=== PATIENT | female | born 1995 | race Caucasian/White ===

== ENCOUNTER → 2023-12-31 14:48 | Outpatient (REF) | payer BC, SELFPAY | LOC: REG 14:48 | PROVIDERS: ATTENDING PHYSICIAN Obstetrics & Gynecology; FAMILY PHYSICIAN Nurse Practitioner Primary Care | DX: O76 Abnormality in fetal heart rate and rhythm complicating labor and delivery (principal) | CPT/HCPCS: 36415; 86850; 86900; 86901 ==

== ENCOUNTER 2024-01-02 19:21 | Inpatient (IN) | payer BC, SELFPAY ==
[2024-01-02 19:27] VITALS: BMI 24.0
[2024-01-02 20:00] VITALS: BP 125/94
[2024-01-02 20:24] LABS: % Basophils 0.3 % (0-2); % Eosinophils 0.8 % (0-6); % Immature Granulocytes 0.6 % (0-0.5); % Lymphocytes 16.4 % (20.5-51.1); % Monocytes 4.1 % (1.7-9.3); % Neutrophils 77.8 % (42.2-75.2); Absolute Eosinophils 0.1 10^3/uL (0-0.7); Absolute Immature Granulocytes 0.1 10^3/uL (0-0.05); Absolute Lymphocytes 1.7 10^3/uL (1.2-3.4); Absolute Monocytes 0.4 10^3/uL (0.1-0.6); Absolute Neutrophils 8.1 10^3/uL (1.4-6.5); Hematocrit 33.8 % (37.0-47.0); Hemoglobin 12.4 g/dL (12.0-16.0); Mean Corp Hgb Conc. 36.7 g/dL (33.0-37.0); Mean Corpuscular Hgb 32.7 pg (27.0-31.0); Mean Corpuscular Volume 89.2 fL (81.0-99.0); Mean Platelet Volume 12.1 fL (7.4-10.4); Nucleated Red Blood Cells % 0 %; Platelet Count 165 10^3/uL (130-400); Red Blood Cell Count 3.79 10^6/uL (4.20-5.40); Red Cell Dist. Width 12.7 % (11.5-14.5); White Blood Cell Count 10.3 10^3/uL (4.8-10.8)
[2024-01-02] MEDS: CYTOTEC 25 MICROGRAM VAG (21:05)
[2024-01-03] MEDS: CYTOTEC PO ×3 (04:22→15:00)
[2024-01-03] MEDS: MORPHINE SULFATE 2 MG IV ×2 (05:13→09:22)
[2024-01-03] MEDS: FLUSH (NSS) 2 FLUSH IV (05:14)
[2024-01-03] MEDS: CYTOTEC 50 MICROGRAM PO (06:26)
[2024-01-03 06:59] LABS: ALT (SGPT) 45 U/L (0-35); AST (SGOT) 34 U/L (14-36); Albumin 3.1 g/dl (3.5-5.0); Alkaline Phosphatase 312 U/L (38-126); Blood Urea Nitrogen 9 mg/dl (7-17); Calcium 8.9 mg/dl (8.4-10.2); Carbon Dioxide 23 mmol/L (22-30); Chloride 106 mmol/L (98-107); Estimated Creatinine Clearance > 125 ml/min; Glucose 85 mg/dl (70-99); Potassium 4.1 mmol/L (3.5-5.1); Sodium 137 mmol/L (135-145); Total Bilirubin 0.5 mg/dl (0.2-1.3); Total Protein 5.6 g/dl (6.3-8.2); eGFR > 60.00
[2024-01-03 07:31] LABS: Protein/creatinine Ratio 3.2; Urine Protein 89 mg/dl
[2024-01-03] MEDS: ZOFRAN 4 MG IV ×2 (11:31→23:50)
[2024-01-03] MEDS: FENTANYL/BUPIVACAINE 100 EPIDURAL (13:34)
[2024-01-03] MEDS: SUBLIMAZE 100 MCG EPIDURAL (13:34)
[2024-01-03] MEDS: PITOCIN 30 UNITS/NSS 500 ML IV (15:01)
[2024-01-03] MEDS: ANCEF 10 IV (15:30)
[2024-01-03] MEDS: ZITHROMAX INFUSION 250 IV (15:35)
[2024-01-03 16:23] LABS: Cord ABG Comment CORD BLOOD
[2024-01-03 16:27] LABS: B.E. Cord ABG -8.7 mMOL/L; HCO3 Cord ABG 21.4 mmol/L; O2 Saturation % Cord ABG 18.6 %; PCO2 Cord ABG 63 mmHg; PO2 Cord ABG 17 mmHg; pH Cord ABG 7.14
[2024-01-03] MEDS: DILAUDID 1 MG IV (18:12)
[2024-01-03] MEDS: TYLENOL 650 MG PO (23:50)
[2024-01-03] MEDS: MYLICON 80 MG PO (23:50)
[2024-01-04] MEDS: PERCOCET 5/325 1 TABLET PO ×2 (04:04→21:07)
[2024-01-04 04:54] LABS: Hematocrit 27.3 % (37.0-47.0); Hemoglobin 9.9 g/dL (12.0-16.0); Mean Corp Hgb Conc. 36.3 g/dL (33.0-37.0); Mean Corpuscular Hgb 32.1 pg (27.0-31.0); Mean Corpuscular Volume 88.6 fL (81.0-99.0); Mean Platelet Volume 11.9 fL (7.4-10.4); Platelet Count 159 10^3/uL (130-400); Red Blood Cell Count 3.08 10^6/uL (4.20-5.40); Red Cell Dist. Width 12.7 % (11.5-14.5); White Blood Cell Count 18.1 10^3/uL (4.8-10.8)
[2024-01-04 04:56] LABS: ALT (SGPT) 40 U/L (0-35); AST (SGOT) 45 U/L (14-36); Alkaline Phosphatase 263 U/L (38-126); Blood Urea Nitrogen 12 mg/dl (7-17); Calcium 9.2 mg/dl (8.4-10.2); Carbon Dioxide 21 mmol/L (22-30); Chloride 103 mmol/L (98-107); Estimated Creatinine Clearance > 125 ml/min; Glucose 99 mg/dl (70-99); Potassium 4.5 mmol/L (3.5-5.1); Sodium 136 mmol/L (135-145); Total Bilirubin 0.7 mg/dl (0.2-1.3); Total Protein 5.4 g/dl (6.3-8.2); eGFR > 60.00
--- NOTE | 2024-01-04 08:07 | W.PN.ANS.POP ---
Anesthesia Post Operative
- Anesthesia Post Op Note
Vital Signs Stable-See Nursing Note: Yes
Airway Patent: Yes
Adequate Pain Control: Yes
Change in Mental Status: No
Current Postoperative Nausea & Vomiting: No
Anesthesia Complications: No
General Anesthetic Recall: No
Unplanned Admission: No
Post Op Hydration Adequate: Yes
[2024-01-04] MEDS: MYLICON 80 MG PO ×2 (09:10→15:34)
[2024-01-04] MEDS: SENOKOT-S 1 TABLET PO (09:10)
[2024-01-04] MEDS: FEOSOL 325 MG PO (11:37)
[2024-01-04] MEDS: PRENATAL PLUS 1 TABLET PO (11:37)
[2024-01-04] MEDS: TYLENOL 650 MG PO (15:34)
[2024-01-05] MEDS: FEOSOL 325 MG PO (08:26)
[2024-01-05] MEDS: PRENATAL PLUS 1 TABLET PO (08:26)
[2024-01-05] MEDS: MYLICON 80 MG PO (08:44)
[2024-01-05] MEDS: SENOKOT-S 1 TABLET PO (08:44)
--- NOTE | 2024-01-05 09:10 | W.DS.TRANS ---
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
-
Discharge Instructions:
Discharge Diagnosis/Procedures primary cs
Instructions:
Stand-Alone Forms: LDRP Delivery
Changes to Home Medications: No
Discharge Medications:
DC Medications w/original date entered in [facility]
prenat.vits,sigrid,jue-[id number] 1 tab PO DAILY 01/02/24
ibuprofen 600 mg tablet 600 mg PO Q6HPRN PRN cramps #90 tabs 01/05/24
oxycodone-acetaminophen 5 mg-325 mg tablet 1 tab PO Q4HPRN PRN moderate pain #6 tabs 01/05/24
Home Medication Changes
Pending Results: No
Additional Pending Results:
pathology
Total time spent discharging patient (in min): 20
[2024-01-07 15:12] LABS: Syphilis/T. pallidum Ab Reflex Negative (Negative)
== END 2024-01-05 14:50 | disposition home or self-care (01) | DRG 788 ==
LOC: LDRP 19:21
PROVIDERS: Obstetrics & Gynecology; ADMITTING PHYSICIAN Obstetrics & Gynecology
PROC: 3E033VJ Introduction of Other Hormone into Peripheral Vein, Percutaneous Approach (ICD-10-PCS; 2024-01-03)
PROC: 10D00Z1 Extraction of Products of Conception, Low, Open Approach (ICD-10-PCS; 2024-01-03)
DX: O76 Abnormality in fetal heart rate and rhythm complicating labor and delivery (principal); Z37.0 Single live birth; Z3A.40 40 weeks gestation of pregnancy
CPT/HCPCS: 88307; 80053; 82570; 82803; 84156; 85025; 85027; 86780; 86850; 86900; 86901